=== PATIENT | female | born 1965 | race Caucasian/White ===

== ENCOUNTER 2016-12-08 15:20 | Emergency (ER) | payer OTHER ==
[~2016-12-08] VITALS: Ht 149.9 cm; Wt 70.3 kg
[~2016-12-08 15:20] MED LIST: ABILIFY 5 MG TAB5 MG PO; ABILIFY10 MG PO; ADVAIR 250-501 EACH IH; APAP500 PO; CHANTIX1 MG PO; CIPROFLOXACIN500 M1 PO; CLONAZEPAM 1 MG1 M1 NG; CYCLOBENZAPRINE10 MG PO; CYMBALTA60 MG PO; DESYREL; DESYREL50 MG PO; DOXYCYCLINE 10100 MG PO; FLEXERIL PO; HYDROCODON-ACE1 EAC7 PO; HYDROXYZINE HCL25 M1 PO; HYDROXYZINE PAM25 M1 PO; IBUPROFEN 800800 M1 PO; IMIPRAMINE HCL50 M2 PO; KAPVAY0.1 MG PO; MACROBID 100 M100 M1 PO; NAPROSYN500 MG PO; NASONEX17 GM NS; NEURONTIN 300300 M1 PO; NORCO 5-325 TA1 EACH PO; NORFLEX100 MG PO; PAXIL10 MG PO; PERCOCET 5-3251 EACH PO; PRAVASTATIN SOD20 MG PO; PRESTIQUE; PROAIR HFA8.5 GM IH; PROMETHAZINE-C120 ML PO; ROBAXIN500 MG PO; SINGULAIR 10 MG10 M1 PO; VENTOLIN HFA 1818 GM INH; VENTOLIN17 GM INH; ZPAK PO
[2016-12-08] MEDS ORDERED: NORCO 5-325 TA1 EACH PO (15:37)
[2016-12-08] MEDS ORDERED: EFFEXOR XR150 MG PO (15:47)
[2016-12-08] MEDS ORDERED: SYNTHROID50 MCG PO (15:49)
[2016-12-08] MEDS ORDERED: TIZANIDINE HCL4 MG PO (15:49)
[2016-12-08 16:05] VITALS: BP 117/78
== END 2016-12-08 16:05 | disposition home or self-care (01) ==
LOC: ER 15:20
DX: G89.29 Other chronic pain (principal); M54.6 Pain in thoracic spine; F10.99 Alcohol use, unspecified with unspecified alcohol-induced disorder; J44.9 Chronic obstructive pulmonary disease, unspecified; Z88.1 Allergy status to other antibiotic agents; Z88.0 Allergy status to penicillin; Z88.2 Allergy status to sulfonamides

== ENCOUNTER 2019-02-25 07:49 | Emergency (ER) | payer OTHER ==
[~2019-02-25] VITALS: Ht 149.9 cm; Wt 70.3 kg
[~2019-02-25 07:49] MED LIST changes: +EFFEXOR XR150 MG PO; +SYNTHROID50 MCG PO; +TIZANIDINE HCL4 MG PO
[2019-02-25] MEDS ORDERED: NORCO 5-325 TA1 EAC1 PO (08:46)
[2019-02-25 10:08] VITALS: BP 159/97
== END 2019-02-25 09:16 | disposition home or self-care (01) ==
LOC: ER 07:49
DX: S92.322A Displaced fracture of second metatarsal bone, left foot, initial encounter for closed fracture (principal); S92.342A Displaced fracture of fourth metatarsal bone, left foot, initial encounter for closed fracture; J44.9 Chronic obstructive pulmonary disease, unspecified; M54.9 Dorsalgia, unspecified; G89.29 Other chronic pain; F17.210 Nicotine dependence, cigarettes, uncomplicated; Z88.0 Allergy status to penicillin; Z88.1 Allergy status to other antibiotic agents; Z88.2 Allergy status to sulfonamides; W01.0XXA Fall on same level from slipping, tripping and stumbling without subsequent striking against object, initial encounter; Y93.89 Activity, other specified; Y92.89 Other specified places as the place of occurrence of the external cause; Y99.8 Other external cause status

== ENCOUNTER 2019-09-29 15:14 | Emergency (ER) | payer OTHER ==
[~2019-09-29] VITALS: Ht 149.9 cm; Wt 73.9 kg
[~2019-09-29 15:14] MED LIST changes: +NORCO 5-325 TA1 EAC1 PO
[2019-09-29] MEDS ORDERED: ULTRAM 50MG TAB50 MG PO (15:51)
[2019-09-29 17:00] VITALS: BP 145/94
== END 2019-09-29 17:00 | disposition home or self-care (01) ==
LOC: ER 15:14
DX: G89.18 Other acute postprocedural pain (principal); M79.672 Pain in left foot; J44.9 Chronic obstructive pulmonary disease, unspecified; G89.29 Other chronic pain; M54.9 Dorsalgia, unspecified; F17.210 Nicotine dependence, cigarettes, uncomplicated; Z79.899 Other long term (current) drug therapy; Z88.0 Allergy status to penicillin; Z88.1 Allergy status to other antibiotic agents; Z88.2 Allergy status to sulfonamides; Z88.8 Allergy status to other drugs, medicaments and biological substances